=== PATIENT | female | born 1975 | race Caucasian/White ===

== ENCOUNTER 2016-04-11 10:40 | Emergency (ER) | payer BC ==
[2016-04-11 11:02] VITALS: BP 114/70; PULSE 94; TEMP 98; BMI 29.2
[2016-04-11] MEDS ORDERED: IBUPROFEN 600 MG TABLET (FP) PO ONE ×2 (12:56→13:01)
--- NOTE | 2016-04-11 12:57 | PDOC ---
History of Present Illness - General Chief Complaint: Back Pain Stated Complaint: LOWER BACK PAIN Time Seen by Provider: 04/11/16 12:45 History Source: Patient Exam Limitations: No Limitations - History of Present Illness Initial Comments: 04/11/16 13:28 Chief complaint: Back pain 41-year-old female with a history of 3 days of back pain, had her period, thought it might be related to that but has not gotten better. She denies any fever, dysuria, incontinence, saddle anesthesia, pain into her legs or numbness. Pain goes across her lower back. No abdominal pain. Patient has not taken any pain meds, states she had a similar episode several weeks ago that went away on its own. GENERAL/CONSTITUTIONAL: No fever, weakness. dizziness HEAD, EYES, EARS, NOSE AND THROAT: No change in vision. No ear pain or discharge. No sore throat. CARDIOVASCULAR: No chest pain RESPIRATORY: No shortness of breath or cough GASTROINTESTINAL: No pain, nausea, vomiting, diarrhea or constipation GENITOURINARY: No dysuria MUSCULOSKELETAL: No neck, +back pain SKIN: No rash NEUROLOGIC: No headache, vertigo, loss of consciousness, or loss of sensation. GENERAL: The patient is awake, alert, and fully oriented, in no acute distress. HEAD: Normal with no signs of trauma. EYES: Pupils equal, round and reactive to light, sclera anicteric, conjunctiva clear. ENT: pharynx: no erythema, no exudate, uvula midline NECK: supple CHEST: clear, nontender, rr ABD: soft, nontender EXTREMITIES: Normal range of motion, no edema. NEUROLOGICAL: Normal speech, normal gait. Strength 5 out of 5 upper and lower extremities, neurovascular intact SKIN: Warm, Dry Past History - Past Medical History Allergies/Adverse Reactions: Allergies Allergy/AdvReac Type Severity Reaction Status Date / Time No Known Allergies Allergy Verified 04/11/16 11:02 Home Medications: Ambulatory Orders Oxycodone HCl/Acetaminophen [Percocet 5-325 mg Tablet] 1 tab PO Q4H #20 tablet MDD 10 04/11/16 - Psycho/Social/Smoking Cessation Hx Suicidal Ideation: No Smoking History: Never smoked Information on smoking cessation initiated: No *Physical Exam - Vital Signs Last Vital Signs Temp Pulse Resp BP Pulse Ox 98 F 94 H 18 114/70 100 04/11/16 10:59 04/11/16 10:59 04/11/16 10:59 04/11/16 10:59 04/11/16 10:59 Medical Decision Making - Medical Decision Making 04/11/16 Patient with 3 days of lower back pain, no numbness, dysuria, incontinence or saddle anesthesia. No fever. Patient did not take any pain medicine. We will check a urine for and infection although this appears to be musculoskeletal. Patient will get Motrin and be reevaluated Patient still in pain after Motrin, will send a prescription for Percocet, she will see if she can get someone to pick her up so she can be medicated here *DC/Admit/Observation/Transfer Diagnosis at time of Disposition: Lower back pain Qualifiers: Chronicity: acute Back pain laterality: unspecified Sciatica presence: without sciatica Qualified Code(s): M54.5 - Low back pain - Discharge Dispostion Disposition: HOME Condition at time of disposition: Stable Admit: No - Prescriptions Prescriptions: Oxycodone HCl/Acetaminophen [Percocet 5-325 mg Tablet] 1 tab PO Q4H #20 tablet MDD 10 - Patient Instructions Printed Discharge Instructions: DI for Low Back Pain Additional Instructions: No heavy lifting or bending Apply ice to the area 20 minutes every 2 hours for the next 2 days Continue taking Motrin 600 mg every 6 hours for pain. If still in pain he can also take Percocet one to 2 tablets every 4 hours. Return to the nearest ER if numbness, weakness, severe pain, problems with urinating or having bowel movements. Call orthopedist today for an appointment for further evaluation
[2016-04-11 13:17] LABS: URINE APPEARANCE CLEAR; URINE BILIRUBIN NEGATIVE (NEGATIVE); URINE BLOOD NEGATIVE (NEGATIVE); URINE COLOR YELLOW; URINE GLUCOSE (UA) NEGATIVE (NEGATIVE); URINE KETONE NEGATIVE (NEGATIVE); URINE LEUK ESTERASE NEGATIVE (NEGATIVE); URINE NITRITE NEGATIVE (NEGATIVE); URINE PROTEIN NEGATIVE (NEGATIVE); URINE UROBILINOGEN NEGATIVE E.U./dl (0.2-1.0)
[2016-04-11] MEDS ORDERED: OXYCODONE/APAP 5/325MG COMBO TABLET PO ONE (13:38)
[2016-04-11] MEDS ORDERED: OXYCODONE/APAP 5/325MG COMBO TABLET ONE (13:40)
== END 2016-04-11 13:45 | disposition home or self-care (01) ==
LOC: JERFT 10:40
DX: M54.5 Low back pain (principal)
CPT/HCPCS: 81003; 84703; 99281-25

== ENCOUNTER 2016-11-11 05:07 | Day surgery (SDC) | payer BC ==
[2016-11-03 16:04] VITALS: BMI 28.5
[2016-11-11] MEDS ORDERED: ONDANSETRON 4 MG/2 ML VIAL IVPUSH PRN (07:55)
[2016-11-11] MEDS ORDERED: oxyCODONE HCL 5 MG TABLET PO PRN (07:55)
[2016-11-11] MEDS ORDERED: ACETAMINOPHEN 1000 MG/100 ML VIAL (NON FORMULARY) IVPB ONE (07:55)
[2016-11-11] MEDS ORDERED: LACTATED RINGERS SOLUTION 1,000 ML IV SCH (08:00)
[2016-11-11] MEDS ORDERED: MIDAZOLAM HCL 2 MG/2 ML SINGLE DOSE VIAL ONE (08:36)
[2016-11-11] MEDS ORDERED: DEXAMETHASONE SOD PHOSPHATE 4 MG/1 ML VIAL ONE (08:37)
[2016-11-11] MEDS ORDERED: KETOROLAC TROMETHAMINE 30 MG/1 ML VIAL ONE (08:37)
--- NOTE | 2016-11-11 08:52 | HP ---
Past Medical History - Primary Care Physician PCP:: Cody Hugo - Admission Chief Complaint: 41yo P2 with displaced IUD admitted for hysteroscopy and removal of IUD History of Present Illness: Displaced IUD, unable to be retrieved in office History Source: Patient, Medical Record Limitations to Obtaining History: No Limitations - Past Medical History DELIVERY MAN: No: Alzheimer's, CVA, Dementia, Migraine, Multiple Sclerosis, Peripheral Neuropathy, Parkinson's, Seizure, Syncope, TIA, Vertigo, Other Cardiovascular: No: AFIB, Aneurysm, Aortic Insufficiency, Aortic Stenosis, CAD, CHF, Deep Vein Thrombosis, HTN, Hyperlipdemia, [place], Mitral Insufficiency, Mitral Stenosis, Murmur, Pulmonary Hypertension, Other Pulmonary: No: Asthma, Bronchitis, Cancer, COPD, O2 Dependent, Pneumonia, Previously Intubated, Pulmonary Embolus, Pulmonary Fibrosis, Sleep Apnea, Other Gastrointestinal: No: Ascites, Cancer, Constipation, Crohn's Disease, Diverticulitis, Diverticulosis, Esophageal Varices, Gastritis, GERD, GI Bleed, Hemorrhoids, Hiatal Hernia, Inflamatory Bowel Disease, Irritable Bowel Disease, Pancreatitis, Peptic Ulcer Disease, Ulcerative Colitis, Other Hepatobiliary: No: Cirrhosis, Cholelithiasis, Cholecystitis, Choledocholithiasis , Hepatitis A, Hepatitis B, Hepatitis C, Other Renal/: No: Renal Failure, Renal Inusuff, BPH, Cancer, Hematuria, Hemodialysis , Neurogenic Bladder, Renal Calculi, UTI, Other Reproductive: No: Ectopic , Endometriosis, Fibroids, PID, Polycystic Ovary Syndrome, Postmenopausal, Other ...Para: 2 (C/S x 2) Heme/Onc: No: Anemia, B12 Deficiency, Bleeding Disorder, Cancer, Current Chemotherapy, Current Radiation Therapy, Hemochromatosis, Hypercoaguable State, Myeloproliferative Synd, Sickle Cell Disease, Sickle Cell Trait, Thrombocytopenia, Other Infectious Disease: No: AIDS, C-Diff, Herpes Zoster, HIV, MRSA, STD's, Tuberculosis, VREF, Other Psych: No: Addictions, Anxiety, Bipolar, Depression, Panic, Psychosis, Schizophrenia, Other Musculoskeletal: No: Bursitis, Chronic low back pain, Hemiparesis, Hemiplegia, Osteoarthritis, Paraplegia, Other Rheumatology: No: Fibromyalgia, Gout, Lupus, Rheumatoid Arthritis, Sarcoidosis, Vasculitis, Other ENT: No: Allergic Rhinitis, Sinusitis, Other Endocrine: No: [place]'s Disease, Mcdonald's Disease, Diabetes Insipidus, Diabetes Mellitus, Hyperparathyroidism, Hyperthyroidism, Hypothyroidism, Osteopenia, SIADH, Other Dermatology: No: Basal Cell, Cellulitis, Eczema, Melanoma, Psoriasis, Squamous Cell, Other - Past Surgical History Past Surgical History: Yes: Hx Myomectomy: No Hx Transabdominal Cerclage: No - Advance Directives Advance Directives: Yes: Living Will - Smoking History Smoking history: Never smoked - Alcohol/Substance Use Hx Alcohol Use: Yes (SOCIALLY) History of Substance Use: reports: None - Social History ADL: Independent History of Recent Travel: No Home Medications - Allergies Allergies/Adverse Reactions: Allergies Allergy/AdvReac Type Severity Reaction Status Date / Time No Known Allergies Allergy Verified 11/03/16 16:04 - Home Medications Home Medications: Ambulatory Orders NK [No Known Home Medication] 11/03/16 Family Disease History - Family Disease History Family History: Denies Review of Systems - Review of Systems Constitutional: reports: No Symptoms Eyes: reports: No Symptoms HENT: reports: No Symptoms Neck: reports: No Symptoms Cardiovascular: reports: No Symptoms Respiratory: reports: No Symptoms Gastrointestinal: reports: No Symptoms Genitourinary: reports: No Symptoms Breasts: reports: No Symptoms Reported Musculoskeletal: reports: No Symptoms Integumentary: reports: No Symptoms Neurological: reports: No Symptoms Endocrine: reports: No Symptoms Hematology/Lymphatic: reports: No Symptoms Psychiatric: reports: No Symptoms Pain Intensity: 0 Physical Exam-PEGGER Vital Signs: Vital Signs Temperature 98.5 F 11/11/16 07:20 Pulse Rate 65 11/11/16 07:20 Respiratory Rate 16 11/11/16 07:20 Blood Pressure 105/66 11/11/16 07:20 O2 Sat by Pulse Oximetry (%) 99 11/11/16 07:21 Constitutional: Yes: Well Nourished, No Distress, Calm Eyes: Yes: WNL, Conjunctiva Clear HENT: Yes: WNL, Atraumatic, Normocephalic Neck: Yes: WNL, Supple, Trachea Midline Cardiovascular: Yes: WNL, Regular Rate and Rhythm Respiratory: Yes: WNL, Regular, CTA Bilaterally Gastrointestinal: Yes: WNL, Normal Bowel Sounds, Soft ...Rectal Exam: Yes: Deferred Renal/: Yes: WNL Pelvis: Yes: WNL External Genitalia: Yes: Normal Internal Exam Deferred: No Vaginal Exam: Yes: Normal Cervix: Yes: Normal Uterus: Yes: Normal Adnexa: Normal: Left, Right Musculoskeletal: Yes: WNL Extremities: Yes: WNL Integumentary: Yes: WNL Neurological: Yes: WNL, Alert, Oriented ...Motor Strength: WNL Psychiatric: Yes: WNL, Alert, Oriented Imaging - Results Ultrasound: Report Reviewed Assessment/Plan 41yo P2 with displaced IUD admitted for hysteroscopy and removal of IUD. We had discussed the risks, benefits, alternatives of surgery at length including but not limited to infection, bleeding, scarring, perforation, amenorrhea, infertility, hysterectomy, etc. The pt verbalized understanding and requested to proceed with surgery. I emphasized that all surgeries have risks and no guarantees can be provided
[2016-11-11] MEDS ORDERED: ACETAMINOPHEN INJECTION 100 ML IVPB ONE (09:33)
--- NOTE | 2016-11-11 09:48 | OP ---
Operative Note - Note: Operative Date: 11/11/16 Pre-Operative Diagnosis: Displaced IUD Operation: Hysteroscopy, removal of IUD, excision of uterine polyp Findings: IUD within the uterine cavity, uterine polyps from the posterior uterine wall to endocervix Post-Operative Diagnosis: Same as Pre-op Surgeon: Cody Hugo Anesthesiologist/SOFTWARE SUPPORT SPECIALIST: Bakari Anderson Anesthesia: General Specimens Removed: IUD, uterine polyp Estimated Blood Loss (mls): 3 Blood Volume Replaced (mls): 0 Fluid Volume Replaced (mls): 450 Operative Report Dictated: Yes
[2016-11-11] MEDS: MIDAZOLAM HCL 2 MG/2 ML SINGLE DOSE VIAL IVPUSH ONE ×2 (10:16→10:25)
--- NOTE | 2016-11-11 11:12 | OP ---
DATE OF OPERATION: 11/11/2016 PREOPERATIVE DIAGNOSIS: Displaced intrauterine device. POSTOPERATIVE DIAGNOSES: 1. Displaced intrauterine device. 2. Uterine polyps. PROCEDURE: Hysteroscopy, removal of intrauterine device, excision of uterine polyps. SURGEON: Cody Hugo MD SKIP PIT WORKER: None. ANESTHESIOLOGIST: Bakari Anderson CRNA and Jus Ayon MD ANESTHESIA: General. COMPLICATIONS: None. ESTIMATED BLOOD LOSS: 3 mL INTRAVENOUS FLUIDS: 450 mL of crystalloids. PATHOLOGY: Uterine polyps and IUD. FINDINGS: Examination under anesthesia revealed a small anteverted uterus with no pelvic or adnexal masses. Hysteroscopy revealed an IUD inside the uterine cavity with the string wrapped around several uterine polyps. The polyps were extending from the posterior uterine wall and into the endocervical canal. The polyps and the IUD were submitted to pathology for evaluation. DESCRIPTION OF PROCEDURE: The patient was met preoperatively. Risks, benefits, and alternatives of surgery were discussed in detail. All questions were answered. The patient was then brought to the OR with the IV running. She was placed on a surgical table in the supine position. General anesthesia was achieved without difficulty. The patient was then placed in a dorsal lithotomy position using adjustable Joe stirrups. The patient was examined under anesthesia with the findings as noted above. No IUD string was noted on vaginal examination. The patient was then prepped and draped in the usual sterile fashion. A sterile speculum was introduced inside the vagina with good visualization of the cervix. The cervix was grasped with a single-tooth tenaculum. The cervical os was dilated to accommodate size 17 Toussaint dilator. A diagnostic hysteroscope was introduced into the uterine cavity. Several uterine polyps were noted inside the uterine cavity with the IUD string wrapped around and included in some of the uterine polyps. The IUD device was inside the uterine cavity. The IUD was grasped and removed with the hysteroscope guidance. The IUD was sent to Pathology. The cervical os was then dilated, and uterine polyps were removed using polyp forceps. The hysteroscope was again inserted into the uterine cavity. No more polyps were noted. The hysteroscope was removed. All of the instruments were removed from the patient. Good hemostasis was noted. The patient was returned to supine position and transferred to recovery room awake and in stable condition. Jey GUTIERREZ/[id number]
[2016-11-11 11:14] VITALS: TEMP 97.8
[2016-11-11 12:51] VITALS: BP 95/52; PULSE 65
--- NOTE | 2016-11-14 12:41 | PATH ---
Surgical Pathology Report Patient Name: LISS SANTIAGO Med. Rec. #: [id number] /Age/Gender: 1975 (Age: 41) / F Account: [id number] Location: [facility] Taken: 11/11/2016 Received: 11/11/2016 Reported: 11/14/2016 Physicians: Cody Hugo M.D. Specimen(s) Received A: ENDOMETRIAL POLYPS B: IUD Clinical History Displaced IUD Final Diagnosis A. ENDOMETRIUM, POLYPECTOMY: NECROTIC TISSUE AND MUCINOUS MATERIAL. NO INTACT ENDOMETRIUM IDENTIFIED. B. CONSTRUCTION MANAGER, UTERUS, REMOVAL: CONSTRUCTION MANAGER CONSISTENT WITH IUD (GROSS ONLY). Comment: Recommend correlation with clinical findings and follow up as clinically indicated. Electronically Signed Sravan Nava M.D. Gross Description A. Received in formalin labeled "endometrial polyp," a 2.0 x 2.0 x 0.3 cm aggregate of can bob, possibly necrotic soft tissue fragments admixed with mucus. The formalin is filtered and the specimen is entirely submitted in one cassette. B. Received fresh labeled "IUD," is a 3 cm in length T-shaped device, consistent with an IUD. No soft tissue is present. No sections are submitted, gross only. 11/11/201611/11/2016
== END 2016-11-11 12:35 | disposition home or self-care (01) ==
LOC: JASU-SURG 05:07
PROVIDERS: ATTEND Obstetrics & Gynecology
PROC: 0UB98ZX Excision of Uterus, Via Natural or Artificial Opening Endoscopic, Diagnostic (ICD-10-PCS; 2016-11-11)
PROC: 0UPD8HZ Removal of Contraceptive Device from Uterus and Cervix, Via Natural or Artificial Opening Endoscopic (ICD-10-PCS; principal; 2016-11-11 08:30)
DX: T83.89XA Other specified complication of genitourinary prosthetic devices, implants and grafts, initial encounter (principal); N84.0 Polyp of corpus uteri
CPT/HCPCS: 84703; 86850; 86900; 86901; 88300-TC; 88305-TC; 94760

== ENCOUNTER 2017-12-29 05:27 | Day surgery (SDC) | payer BC ==
[2017-12-27 12:28] VITALS: BMI 27.6
[2017-12-29] MEDS ORDERED: BUPIVACAINE HCL/PF 0.75% 10 ML VIAL ONE (08:51)
[2017-12-29] MEDS ORDERED: LIDOCAINE HCL/PF 2% SDV 5ML VIAL ONE (09:00)
[2017-12-29] MEDS ORDERED: PROPOFOL 20 ML ONE (09:00)
[2017-12-29] MEDS ORDERED: MIDAZOLAM HCL 2 MG/2 ML SINGLE DOSE VIAL ONE (09:00)
--- NOTE | 2017-12-29 09:05 | HP ---
Past Medical History - Primary Care Physician PCP:: Cody Hugo - Admission Chief Complaint: 42yo P2 admitted for laparoscopic BTL History of Present Illness: Desires sterilization. IUD was removed w/hysteroscopy. History Source: Patient, Medical Record Limitations to Obtaining History: No Limitations - Past Medical History INDIVIDUALIZED EDUCATION PLAN AIDE: No: Alzheimer's, CVA, Dementia, Migraine, Multiple Sclerosis, Peripheral Neuropathy, Parkinson's, Seizure, Syncope, TIA, Vertigo, Other Cardiovascular: No: AFIB, Aneurysm, Aortic Insufficiency, Aortic Stenosis, CAD, CHF, Deep Vein Thrombosis, HTN, Hyperlipdemia, [place], Mitral Insufficiency, Mitral Stenosis, Murmur, Pulmonary Hypertension, Other Pulmonary: No: Asthma, Bronchitis, Cancer, COPD, O2 Dependent, Pneumonia, Previously Intubated, Pulmonary Embolus, Pulmonary Fibrosis, Sleep Apnea, Other Gastrointestinal: No: Ascites, Cancer, Constipation, Crohn's Disease, Diverticulitis, Diverticulosis, Esophageal Varices, Gastritis, GERD, GI Bleed, Hemorrhoids, Hiatal Hernia, Inflamatory Bowel Disease, Irritable Bowel Disease, Pancreatitis, Peptic Ulcer Disease, Ulcerative Colitis, Other Hepatobiliary: No: Cirrhosis, Cholelithiasis, Cholecystitis, Choledocholithiasis , Hepatitis A, Hepatitis B, Hepatitis C, Other Renal/: No: Renal Failure, Renal Inusuff, BPH, Cancer, Hematuria, Hemodialysis , Neurogenic Bladder, Renal Calculi, UTI, Other Reproductive: No: Ectopic , Endometriosis, Fibroids, PID, Polycystic Ovary Syndrome, Postmenopausal, Other ...: 3 ...Para: 2 ...Spon : 1 Heme/Onc: No: Anemia, B12 Deficiency, Bleeding Disorder, Cancer, Current Chemotherapy, Current Radiation Therapy, Hemochromatosis, Hypercoaguable State, Myeloproliferative Synd, Sickle Cell Disease, Sickle Cell Trait, Thrombocytopenia, Other Infectious Disease: No: AIDS, C-Diff, Herpes Zoster, HIV, MRSA, STD's, Tuberculosis, VREF, Other Psych: No: Addictions, Anxiety, Bipolar, Depression, Panic, Psychosis, Schizophrenia, Other Musculoskeletal: No: Bursitis, Chronic low back pain, Hemiparesis, Hemiplegia, Osteoarthritis, Paraplegia, Other Rheumatology: No: Fibromyalgia, Gout, Lupus, Rheumatoid Arthritis, Sarcoidosis, Vasculitis, Other ENT: No: Allergic Rhinitis, Sinusitis, Other Endocrine: No: [place]'s Disease, [place]'s Disease, Diabetes Insipidus, Diabetes Mellitus, Hyperparathyroidism, Hyperthyroidism, Hypothyroidism, Osteopenia, SIADH, Other Dermatology: No: Basal Cell, Cellulitis, Eczema, Melanoma, Psoriasis, Squamous Cell, Other - Past Surgical History Past Surgical History: Yes: (x 2) Hx Myomectomy: No Hx Transabdominal Cerclage: No - Advance Directives Advance Directives: Yes: Living Will - Smoking History Smoking history: Never smoked - Alcohol/Substance Use Hx Alcohol Use: Yes (SOCIALLY) History of Substance Use: reports: None - Social History ADL: Independent History of Recent Travel: No Home Medications - Allergies Allergies/Adverse Reactions: Allergies Allergy/AdvReac Type Severity Reaction Status Date / Time No Known Allergies Allergy Verified 11/03/16 16:04 - Home Medications Home Medications: Ambulatory Orders NK [No Known Home Medication] 12/27/17 Family Disease History - Family Disease History Family History: Unremarkable Review of Systems - Review of Systems Constitutional: reports: No Symptoms Eyes: reports: No Symptoms HENT: reports: No Symptoms Neck: reports: No Symptoms Cardiovascular: reports: No Symptoms Respiratory: reports: No Symptoms Gastrointestinal: reports: No Symptoms Genitourinary: reports: No Symptoms Breasts: reports: No Symptoms Reported Musculoskeletal: reports: No Symptoms Integumentary: reports: No Symptoms Neurological: reports: No Symptoms Endocrine: reports: No Symptoms Hematology/Lymphatic: reports: No Symptoms Psychiatric: reports: No Symptoms Pain Intensity: 0 Physical Exam-SLEEP MANAGER Vital Signs: Vital Signs Temperature 99 F 12/29/17 07:49 Pulse Rate 64 12/29/17 07:49 Respiratory Rate 16 12/29/17 07:49 Blood Pressure 95/60 12/29/17 07:49 O2 Sat by Pulse Oximetry (%) 99 12/29/17 07:49 Constitutional: Yes: Well Nourished, No Distress, Calm Eyes: Yes: WNL, Conjunctiva Clear HENT: Yes: WNL, Atraumatic, Normocephalic Neck: Yes: WNL, Supple, Trachea Midline Cardiovascular: Yes: WNL, Regular Rate and Rhythm Respiratory: Yes: WNL, Regular, CTA Bilaterally Gastrointestinal: Yes: WNL, Normal Bowel Sounds, Soft ...Rectal Exam: Yes: Deferred Renal/: Yes: WNL Pelvis: Yes: WNL External Genitalia: Yes: Normal Internal Exam Deferred: No Vaginal Exam: Yes: Normal Cervix: Yes: Normal Uterus: Yes: Normal, Freely Moveable Adnexa: Normal: Left, Right Musculoskeletal: Yes: WNL Extremities: Yes: WNL Edema: No Integumentary: Yes: WNL Neurological: Yes: WNL, Alert, Oriented ...Motor Strength: WNL Psychiatric: Yes: WNL, Alert, Oriented Assessment/Plan 42yo P2 admitted for surgical sterilization. The pt prefers laparoscopic bilateral tubal ligation. We had discussed the risks, benefits, alternatives of surgery at length including but not limited to infection, bleeding, scarring, perforation, amenorrhea, infertility, hysterectomy, injury to surrounding/ underlying organs or structure, need for additional surgery to repair/treat any complications, etc. The patient verbalized understanding and requested to proceed with surgery. I emphasized that all surgeries have risks and no guarantees can be provided.
[2017-12-29] MEDS ORDERED: KETOROLAC TROMETHAMINE 30 MG/1 ML VIAL ONE (09:17)
[2017-12-29] MEDS ORDERED: DEXAMETHASONE SOD PHOSPHATE 4 MG/1 ML VIAL ONE (09:17)
[2017-12-29] MEDS ORDERED: BUPIVACAINE HCL/PF 0.25% (2.5MG/ML) 10 ML VIAL IJ ONE ×2 (09:30)
[2017-12-29] MEDS ORDERED: NEOSTIGMINE METHYLSULFATE 0.5 MG/ML - 10 ML MDV ONE (09:42)
[2017-12-29] MEDS ORDERED: GLYCOPYRROLATE 0.2 MG/1 ML VIAL ONE (09:42)
--- NOTE | 2017-12-29 10:13 | OP ---
Operative Note - Note: Operative Date: 12/29/17 Pre-Operative Diagnosis: Voluntary sterilization Operation: Laparoscopic BTL Findings: AV uterus with a 3cm anterior mid-fundal myoma and a 2cm left fundal pedunculated myoma. Normal tubes and ovaries b/l Post-Operative Diagnosis: Same as Pre-op Surgeon: Cody Hugo Sheet Rock Installation Helper: Baltazar Barton Anesthesia: General Estimated Blood Loss (mls): 1 Drains & Tubes with Location: Villegas cath Drains, Volume Out (mls): 50 Blood Volume Replaced (mls): 0 Fluid Volume Replaced (mls): 500 Operative Report Dictated: Yes
--- NOTE | 2017-12-29 10:23 | DS ---
Physical Exam-RADIAL DRILL PRESS OPERATOR Vital Signs: Vital Signs Temperature 99 F 12/29/17 07:49 Pulse Rate 64 12/29/17 07:49 Respiratory Rate 16 12/29/17 07:49 Blood Pressure 95/60 12/29/17 07:49 O2 Sat by Pulse Oximetry (%) 99 12/29/17 07:49 Constitutional: Yes: Well Nourished, No Distress, Calm Eyes: Yes: WNL, Conjunctiva Clear, EOM Intact HENT: Yes: WNL, Atraumatic, Normocephalic Neck: Yes: WNL, Supple, Trachea Midline Cardiovascular: Yes: WNL, Regular Rate and Rhythm Respiratory: Yes: WNL, Regular, CTA Bilaterally Gastrointestinal: Yes: WNL, Normal Bowel Sounds, Soft ...Rectal Exam: Yes: Deferred Renal/: Yes: WNL Internal Exam Deferred: Yes Musculoskeletal: Yes: WNL Extremities: Yes: WNL Edema: No Integumentary: Yes: WNL Wound/Incision: Yes: Clean/Dry, Well Approximated, Sutures Intact Neurological: Yes: WNL, Alert, Oriented ...Motor Strength: WNL Psychiatric: Yes: WNL, Alert, Oriented Discharge Summary Reason For Visit: ENCOUNTER FOR STERILIZATION,OTHER CONTRACEPTIVE MA Procedures: Principal: Laparascopic BTL Hospital Course: Normal recovery Condition: Good - Instructions Diet, Activity, Other Instructions: Dr. Cody Hugo Business Development Recruiter discharge instructions Physical activity Resume your normal everyday activity as tolerated no heavy lifting or exercise until seen by your surgeon. You may walk unlimited sadaf of and climb stairs. You may resume driving the car when you feel safe and comfortable behind the wheel. No sexual activity as instructed by Dr. Cody Hugo. Wound care If you have a bandage, leave it on, and keep dry for 48-72 hours. After that time discard the outer bandage. If they are tapes on the skin under the out of bandage leave them in place. They will peel off in the next 7 to 10 days. Do Not Peel them off. You may shower the day after surgery. If there are tapes present on the skin, you may shower over them. Diet There are no dietary restrictions. Eat healthy, high-fiber foods. Drink 6 to 8 glasses of liquid each day. This will assist in keeping your bowels are regular. Pain management You may take Tylenol or acetaminophen or Ibuprofen (for example, Motrin, Advil etc.) from my pain prescription medication is ordered should be taken as prescribed for moderate to severe pain. Call Dr. Cody Hugo for any of the following: Severe pain not relieved by medication Fever of 101 or higher Excessive bleeding or drainage on dressing Inability to urinate Call the office at [phone] for an appointment in seven days. Disposition: HOME - Home Medications Comprehensive Discharge Medication List: Ambulatory Orders NK [No Known Home Medication] 12/27/17
[2017-12-29] MEDS ORDERED: ONDANSETRON 4 MG/2 ML VIAL ONE (10:32)
[2017-12-29] MEDS ORDERED: oxyCODONE HCL 5 MG TABLET ONE (10:46)
[2017-12-29] MEDS ORDERED: ONDANSETRON 4 MG/2 ML VIAL IVPUSH PRN (10:54)
[2017-12-29] MEDS ORDERED: LACTATED RINGERS SOLUTION 1,000 ML IV SCH (11:00)
--- NOTE | 2017-12-29 11:01 | OP ---
DATE OF OPERATION: 12/29/2017 PREOPERATIVE DIAGNOSIS: Voluntary sterilization. POSTOPERATIVE DIAGNOSIS: Voluntary sterilization. PROCEDURE: Laparoscopic bilateral tubal ligation via fulguration method. SURGEON: Cody Hugo MD SHIPPING AND RECEIVING ASSOCIATE: Baltazar Barton MD ANESTHESIOLOGIST: Savannah Matson MD ANESTHESIA: General endotracheal. COMPLICATIONS: None. ESTIMATED BLOOD LOSS: Less than 1 mL. PATHOLOGY: None. IV FLUIDS: 500 mL. URINE OUTPUT: 50 mL of clear urine at the end of the procedure. FINDINGS: Examination under anesthesia revealed a small, anteverted uterus freely mobile within pelvis. No pelvic or adnexal masses. Laparoscopy revealed an anteverted uterus with a mid fundal subserosal myoma approximately 3 cm in diameter as well as a left fundal pedunculated myoma approximately 2 cm in diameter. Normal fallopian tubes and ovaries bilaterally. Normal intestines, appendix, liver, stomach were also observed. DESCRIPTION OF PROCEDURE: The patient was met preoperatively. Risks, benefits, and alternatives of surgery were discussed in detail. All questions were answered. The patient was brought to the OR with the IV running. The patient was placed on the surgical table in a supine position. General anesthesia was achieved without difficulty. The patient was placed in a dorsal lithotomy position using adjustable Joe stirrups. She was examined under anesthesia with the findings as described above. The time-out was conducted as per standard protocol. The patient was then prepped and draped in the usual sterile fashion. A Villegas catheter was inserted into the bladder and left to drain to gravity. A HUMI uterine manipulation was placed without complications. The surgeons then proceeded with the laparoscopy. A 5-mm infraumbilical incision was made with a knife. A Veress needle was introduced through the umbilical incision into the peritoneal cavity. Intraperitoneal placement was confirmed. Pneumoperitoneum was produced using CO2 gas with intra-abdominal pressure limited to 20 mmHg. Once the pneumoperitoneum was accomplished, the Veress needle was removed. An Optiview trocar was then used to gain entry into the peritoneum through the umbilical incision. Atraumatic placement was confirmed. Using a laparoscope, the intra-abdominal pressure was then reduced to 15 mmHg. A second 5-mm incision was made approximately 2 cm above the pubic bone in the midline. A second 5-mm trocar was then introduced under direct visualization. Atraumatic placement was assured. A bipolar Kleppinger was then used to grasp the left fallopian tube. The fallopian tube was followed to the fimbriated end. The midportion of the left fallopian tube was then cauterized without complications and successfully for the length of approximately 2.5 to 3 cm. The right fallopian tube was then also grasped and followed to the fimbriated end. The midportion of the right fallopian tube was also cauterized for the length of approximately 2.5 to 3 cm successfully. Once this was accomplished, good hemostasis was confirmed. A survey of the abdominal cavity was performed as described above. The pneumoperitoneum was reduced. The trocars were removed from the abdomen under direct visualization. The instruments count was correct. The Villegas catheter and HUMI were removed. The patient was returned to supine position. She was then transferred to the recovery room awake and in stable condition. Jey [id number]
[2017-12-29 11:54] VITALS: TEMP 98.1
[2017-12-29 12:09] VITALS: PULSE 64
[2017-12-29 15:05] VITALS: BP 94/54
== END 2017-12-29 15:13 | disposition home or self-care (01) ==
LOC: JASU-SURG 05:27 → JASUSAT 05:27 → EDSTATUS 09:00 → JASU-SURG 15:13
PROVIDERS: ATTEND Obstetrics & Gynecology
PROC: 0U574ZZ Destruction of Bilateral Fallopian Tubes, Percutaneous Endoscopic Approach (ICD-10-PCS; principal; 2017-12-29 09:00)
DX: Z30.2 Encounter for sterilization (principal)
CPT/HCPCS: 84703; 86850; 86900; 86901; 94760